=== PATIENT | female | born 1975 | race Caucasian/White ===

== ENCOUNTER → 2019-12-06 | Outpatient (CLI) | payer BC ==
--- NOTE | 2019-12-09 11:29 | CT ---
EXAMINATION TYPE: CT angio head neck DATE OF EXAM: 12/06/2019 HISTORY: dizziness, nausea, abnormal MRA COMPARISON: Outside MRA December 01, 2019 CT DLP: 1246.7 mGycm. Automated Exposure Control for Dose Reduction was Utilized. TECHNIQUE: CT brain and neck without contrast. CTA scan of the head and neck are performed without a nd with IV Contrast, patient injected with 65 mL of Isovue 370, axial images are obtained, coronal an d sagittal reformatted images are reviewed. Three-D reconstructed images are created on an [employer] workstation and reviewed. FINDINGS: Carotid/Vascular Structures: Normal three-vessel origin from aortic arch. Right common carotid artery shows normal origin from right brachiocephalic artery. No significant plaque or stenosis in the righ t common or internal carotid artery including at level of right carotid bulb. Patent left common and internal carotid artery without significant plaque or stenosis including carotid bulb. Patent externa l carotid arteries bilaterally. There is codominant vertebrobasilar system patent to basilar junction. 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 No significant focal stenosis or aneurysmal change seen. Images of the anterior circulation show small caliber but patent left A1 segment. Patent anterior com municating artery seen better on MRI versus CTA study. No significant focal stenosis or aneurysmal ch sanjay seen. Other: Slight levoconvex scoliotic curvature centered upper thoracic spine. Reversal of normal cervic al curvature on sagittal images. Nasal septum deviated to right of midline. Slightly heterogeneous no rmal-sized thyroid. Mild emphysematous change visualized upper lungs. Noncontrast brain CT shows no acute intracranial hemorrhage or midline shift. Ventricles and sulci ar e normal in size. IMPRESSION: No aneurysmal change or significant stenosis, no internal carotid arteries bilaterally. U nremarkable cervical [place]. No dissection distal internal carotid artery bilaterally. Artifact accou nts for finding on recent MRA study with better visualization of vascular structures on this CTA stud y including patent right A1 segment.
== END | disposition home or self-care (01) ==
LOC: RADCTMAIN 11:24
PROVIDERS: ATTEND Psychiatry & Neurology Neurology
DX: R93.0 Abnormal findings on diagnostic imaging of skull and head, not elsewhere classified (principal)
CPT/HCPCS: 70496; 70498; Q9967